=== PATIENT | male | born 1965 ===

== ENCOUNTER 2021-05-20 10:07 | Day surgery (SDC) | payer BC ==
[~2021-05-20] VITALS: Ht 180.3 cm; Wt 86.6 kg
[2021-05-20 10:56] VITALS: BP 127/95; PULSE 82; TEMP 97.4
[2021-05-20] MEDS ORDERED: THE MEDICINE S200 M2 PO (11:04)
[2021-05-20] MEDS ORDERED: ONE-A-DAY ESSE1 EACH PO (11:05)
[2021-05-20] MEDS ORDERED: OMEGA-3 1000 MG1 CAP PO (11:05)
[2021-05-20 12:05] VITALS: BP 111/69; PULSE 77
[2021-05-20 12:20] VITALS: BP 105/83; PULSE 80
[2021-05-20 12:35] VITALS: BP 125/93; PULSE 75; TEMP 97
--- NOTE | 2021-05-20 13:00 | NUR ---
1205- Pt returns from endo procedure via cart to [facility] [address]. Pt ambulates from cart to recliner with RN assist. Monitors on and alarms set. Call light within reach. Report received from DAMIÁN Corona. Pt alert and oriented. Pt requests cranberry juice and muffin. Pt denies any pain or nausea. 1220- Pt taking food and drink well. No complications noted. 1235- Dr. in to speak with pt. Discharge instructions given to pt. All questions answered to pt and 's satisfaction. Handed to pt are education material and discharge information. 1300- Pt transferred out of the hospital via wheelchair, to private vehicle driven by .
== END 2021-05-20 13:00 | disposition home or self-care (01) ==
LOC: SDCO 10:07
DX: Z12.11 Encounter for screening for malignant neoplasm of colon (principal); D12.0 Benign neoplasm of cecum
CPT/HCPCS: J2704